=== PATIENT | male | born 1955 | race Two or more races ===

== ENCOUNTER 2020-04-14 12:04 | Outpatient (CLI) | payer MEDICAID ==
[~2020-04-14] VITALS: Ht 172.7 cm; Wt 81.2 kg
[2020-04-14 15:23] VITALS: BP 128/88
[2020-04-14] MEDS ORDERED: OMEPRAZOLE20 M2 ORAL (15:23)
--- NOTE | 2020-04-14 18:00 | Consultation ---
DATE OF CONSULTATION: 04/14/2020 CONSULTING PHYSICIAN: Kevyn Gonzalez MD. CHIEF COMPLAINT: GERD, screening colonoscopy, abdominal pain. PAST MEDICAL HISTORY: 1. Alcoholism. 2. GERD. 3. Goiter. PAST SURGICAL HISTORY: None. MEDICATIONS: Omeprazole 20 mg twice a day. FAMILY HISTORY: No family history of GI malignancies. SOCIAL HISTORY: Patient used to drink alcohol, now he is only social. Tobacco, he uses cigarettes everyday. Denies any drug use. ALLERGIES: No known allergies. REVIEW OF SYSTEMS: Positive for abdominal pain, GERD. PHYSICAL EXAMINATION: VITAL SIGNS: Temperature 98.8, blood pressure is 128/88, pulse 77, respirations 20. HEENT: Normocephalic and atraumatic. Sclerae anicteric. NECK: Supple. No evidence of obvious lymphadenopathy. CARDIOVASCULAR: Regular rhythm. Plus S1, S2. LUNGS: Clear to auscultation bilaterally. ABDOMEN: Positive bowel sounds. Soft, nontender. No rebound. No guarding. No peritoneal sign. EXTREMITIES: No cyanosis. No clubbing. No edema. ASSESSMENT AND PLAN: This is a 64-year-old male with chronic GERD, also need for screening colonoscopy. Plan EGD and colonoscopy when the authorization is obtained. Patient was informed of the risks and benefits of procedure. Also, patient was given a prescription for check for B12 and magnesium given he has been on PPI for over a year. Kevyn Gonzalez M.D. DR: CONTRERAS JOB#: [id number] CC:
== END 2020-04-14 14:04 | disposition home or self-care (01) ==
LOC: PAN 12:04
DX: K21.9 Gastro-esophageal reflux disease without esophagitis (principal); R10.9 Unspecified abdominal pain; Z79.899 Other long term (current) drug therapy; F17.210 Nicotine dependence, cigarettes, uncomplicated
CPT/HCPCS: G0463